=== PATIENT | male | born 1960 | race Caucasian/White ===

== ENCOUNTER 2022-03-25 12:24 | Inpatient (IN) | payer OTHER ==
[2022-03-25] MEDS ORDERED: ACETAMINOPHEN 325 MG TABLET (FP) PO PRN ×2 (13:14)
[2022-03-25] MEDS ORDERED: NICOTINE 10 MG CARTRIDGE (INHALER) IH PRN (13:14)
[2022-03-25] MEDS ORDERED: LOPERAMIDE HCL 2 MG CAPSULE PO PRN (13:14)
[2022-03-25] MEDS ORDERED: chlordiazePOXIDE HCL 25 MG CAPSULE PO PRN (13:14)
[2022-03-25] MEDS ORDERED: IBUPROFEN 400 MG TABLET (FP) PO PRN (13:14)
[2022-03-25] MEDS ORDERED: BENZOCAINE/MENTHOL (CHLORASEPTIC ) LOZENGE MM PRN (13:14)
[2022-03-25] MEDS ORDERED: BISMUTH SUBSALICYLATE 262 MG/15 ML BTL PO PRN (13:14)
[2022-03-25] MEDS ORDERED: METHOCARBAMOL 500 MG TABLET PO PRN (13:14)
[2022-03-25] MEDS ORDERED: MAGNESIUM HYDROX 2400MG/30ML ORAL SUSPENSION 30 ML CUP PO PRN (13:14)
[2022-03-25] MEDS ORDERED: MAGNESIUM CITRATE 300 ML BOTTLE PO PRN (13:14)
[2022-03-25] MEDS ORDERED: DICYCLOMINE HCL 10 MG CAPSULE PO PRN (13:14)
[2022-03-25] MEDS ORDERED: ONDANSETRON *ODT* 4 MG TABLET SL PRN (13:14)
[2022-03-25] MEDS ORDERED: MAG HYDROX/AL HYDROX/SIMETH 30 ML UNIT-DOSE CUP PO PRN (13:14)
[2022-03-25] MEDS ORDERED: IBUPROFEN 600 MG TABLET (FP) PO PRN (13:14)
[2022-03-25 13:33] VITALS: BMI 22.2
[2022-03-25] MEDS: PRENATAL VITAMINS W/ FOLIC ACID TABLET (FP) PO SCH (14:32)
[2022-03-25] MEDS: hydrOXYzine PAMOATE 25 MG CAPSULE (FP) PO SCH ×3 (14:32→22:51)
[2022-03-25] MEDS: chlordiazePOXIDE HCL 25 MG CAPSULE PO SCH ×2 (18:06→22:50)
[2022-03-25] MEDS: MELATONIN 5 MG TABLETS PO SCH (22:51)
[2022-03-25] MEDS: THIAMINE HCL 100 MG TABLET (FP) PO SCH (22:51)
[2022-03-26] MEDS: chlordiazePOXIDE HCL 25 MG CAPSULE PO SCH ×4 (06:29→22:12)
[2022-03-26] MEDS: hydrOXYzine PAMOATE 25 MG CAPSULE (FP) PO SCH ×6 (06:29→22:12)
[2022-03-26] MEDS: FLUoxetine HCL 20 MG CAPSULE PO SCH (10:52)
[2022-03-26] MEDS: PRENATAL VITAMINS W/ FOLIC ACID TABLET (FP) PO SCH (10:52)
[2022-03-26] MEDS: NICOTINE 14 MG/24 HOURS TOPICAL PATCH TD SCH (10:53)
[2022-03-26 12:35] LABS: HEMATOCRIT 42.7 % (35.4-49); HEMOGLOBIN 14.2 GM/dL (11.7-16.9); MCHC 33.2 g/dl (32.0-35.9); MEAN CELL VOLUME 99.3 fl (80-96); MEAN PLT VOLUME 6.7 fl (7.5-11.1); PLATELET COUNT 356 10^3/uL (134-434); RDW 12.6 % (11.9-15.9); WHITE BLOOD COUNT 6.8 K/mm3 (4.0-10.0)
[2022-03-26 12:54] LABS: BLOOD UREA NITROGEN 15.6 mg/dL (7-18); CALCIUM 9.4 mg/dL (8.5-10.1)
[2022-03-26 12:57] LABS: CREATININE 0.8 mg/dL (0.55-1.3)
[2022-03-26 12:59] LABS: BILIRUBIN,TOTAL 0.8 mg/dL (0.2-1); TOT PROT 7.3 g/dl (6.4-8.2)
[2022-03-26] MEDS: RAMIPRIL 5 MG CAPSULE PO SCH ×2 (13:47→15:10)
[2022-03-26] MEDS: THIAMINE HCL 100 MG TABLET (FP) PO SCH (22:12)
[2022-03-26] MEDS: MELATONIN 5 MG TABLETS PO SCH (22:14)
[2022-03-27] MEDS: chlordiazePOXIDE HCL 25 MG CAPSULE PO SCH ×4 (05:26→22:18)
[2022-03-27] MEDS: hydrOXYzine PAMOATE 25 MG CAPSULE (FP) PO SCH ×5 (05:26→22:18)
[2022-03-27] MEDS: RAMIPRIL 5 MG CAPSULE PO SCH (10:53)
[2022-03-27] MEDS: NICOTINE 14 MG/24 HOURS TOPICAL PATCH TD SCH (10:53)
[2022-03-27] MEDS: FLUoxetine HCL 20 MG CAPSULE PO SCH (10:53)
[2022-03-27] MEDS: PRENATAL VITAMINS W/ FOLIC ACID TABLET (FP) PO SCH (10:53)
[2022-03-27] MEDS: MELATONIN 5 MG TABLETS PO SCH (22:17)
[2022-03-27] MEDS: THIAMINE HCL 100 MG TABLET (FP) PO SCH (22:18)
[2022-03-28] MEDS ORDERED: chlordiazePOXIDE HCL 10 MG CAPSULE PO PRN
[2022-03-28] MEDS: hydrOXYzine PAMOATE 25 MG CAPSULE (FP) PO SCH ×5 (05:09→22:54)
[2022-03-28] MEDS: chlordiazePOXIDE HCL 10 MG CAPSULE PO SCH ×4 (05:09→22:54)
[2022-03-28] MEDS: PRENATAL VITAMINS W/ FOLIC ACID TABLET (FP) PO SCH (10:25)
[2022-03-28] MEDS: RAMIPRIL 5 MG CAPSULE PO SCH (10:25)
[2022-03-28] MEDS: FLUoxetine HCL 20 MG CAPSULE PO SCH (10:25)
[2022-03-28] MEDS: NICOTINE 14 MG/24 HOURS TOPICAL PATCH TD SCH (10:26)
[2022-03-28] MEDS: MELATONIN 5 MG TABLETS PO SCH (22:54)
[2022-03-28] MEDS: THIAMINE HCL 100 MG TABLET (FP) PO SCH (22:54)
[2022-03-29] MEDS: hydrOXYzine PAMOATE 25 MG CAPSULE (FP) PO SCH ×5 (06:16→22:15)
[2022-03-29] MEDS: chlordiazePOXIDE HCL 10 MG CAPSULE PO SCH ×2 (06:16→17:56)
[2022-03-29] MEDS: PRENATAL VITAMINS W/ FOLIC ACID TABLET (FP) PO SCH (10:38)
[2022-03-29] MEDS: FLUoxetine HCL 20 MG CAPSULE PO SCH (10:38)
[2022-03-29] MEDS: NICOTINE 14 MG/24 HOURS TOPICAL PATCH TD SCH (10:38)
[2022-03-29] MEDS: RAMIPRIL 5 MG CAPSULE PO SCH (10:39)
[2022-03-29] MEDS: MELATONIN 5 MG TABLETS PO SCH (22:15)
[2022-03-29] MEDS: THIAMINE HCL 100 MG TABLET (FP) PO SCH (22:15)
[2022-03-30] MEDS ORDERED: chlordiazePOXIDE HCL 10 MG CAPSULE PO ONE (05:00)
[2022-03-30] MEDS: hydrOXYzine PAMOATE 25 MG CAPSULE (FP) PO SCH ×2 (06:53→10:32)
[2022-03-30 09:45] VITALS: BP 150/88; PULSE 69; TEMP 98
[2022-03-30] MEDS: RAMIPRIL 5 MG CAPSULE PO SCH (10:32)
[2022-03-30] MEDS: FLUoxetine HCL 20 MG CAPSULE PO SCH (10:32)
[2022-03-30] MEDS: PRENATAL VITAMINS W/ FOLIC ACID TABLET (FP) PO SCH (10:32)
[2022-03-30] MEDS: NICOTINE 14 MG/24 HOURS TOPICAL PATCH TD SCH (10:32)
== END 2022-03-30 11:54 | disposition home or self-care (01) | DRG 775 ==
LOC: YASAS 12:24 → Y3N 13:31
PROVIDERS: ADMIT Allergy & Immunology; ATTEND Surgery
PROC: HZ2ZZZZ Detoxification Services for Substance Abuse Treatment (ICD-10-PCS; principal; 2022-03-25)
DX: F10.230 Alcohol dependence with withdrawal, uncomplicated (principal); F17.210 Nicotine dependence, cigarettes, uncomplicated; F19.280 Other psychoactive substance dependence with psychoactive substance-induced anxiety disorder; F18.24 Inhalant dependence with inhalant-induced mood disorder; F41.1 Generalized anxiety disorder; F32.A Depression, unspecified; M19.90 Unspecified osteoarthritis, unspecified site
CPT/HCPCS: 36415; 80053; 85027; 86780; 93005; 93010; C9803-CS; U0003; U0005